=== PATIENT | female | born 1940 | race Caucasian/White ===

== ENCOUNTER 2019-03-14 02:59 | Inpatient (IN) ==
--- NOTE | 2019-03-07 11:02 | EKG Report ---
Test Performed on : 03/07/2019 10:40:01 AM Test Reason : PAT Blood Pressure : / mmHG Vent. Rate : 067 BPM Atrial Rate : 067 BPM P-R Int : 178 ms QRS Dur : 110 ms QT Int : 422 ms P-R-T Axes : 045 012 038 degrees QTc Int : 445 ms Normal sinus rhythm. Incomplete right bundle branch block Nonspecific ST and T wave abnormality Abnormal ECG When compared with ECG of 22-DEC-2017 09:55, Incomplete right bundle branch block is now present Confirmed by Christine SINGER, Vinayak Waters ([id number]) on 03/08/2019 8:25:56 PM
[2019-03-07 11:08] LABS: URINE SOURCE CLEAN CATCH
[2019-03-07 11:13] LABS: BASO# 0.03 X1000 (0.0-0.2); BASO% 0.4 % (0.0-0.8); EOS# 0.19 X1000 (0.0-0.7); EOS% 2.7 % (0.0-10.0); HEMATOCRIT 39.6 % (37.0-47.0); HEMOGLOBIN 12.8 g/dL (12.0-16.0); LYMPH# 1.79 X1000 (1.2-3.4); LYMPH% 25.8 % (20.5-51.1); MCH 28.8 PG (27-31); MCHC 32.3 g/dL (33-37); MONO# 0.66 X1000 (0.11-0.59); MONO% 9.5 % (1.7-9.3); MPV 10.1 FL (7.4-10.4); NEUT# 4.27 X1000 (1.4-6.5); NEUT% 61.6 % (42.2-75.2); PLT 256 X1000 (130-400); RBC 4.45 XMIL (4.2-5.4); RDW 14.6 % (11.5-14.5); WBC 6.94 X1000 (4.8-10.8)
[2019-03-07 11:18] LABS: BILIRUBIN URINE NEGATIVE (NEGATIVE); BLOOD URINE NEGATIVE (NEGATIVE); COLOR YELLOW; GLUCOSE URINE NEGATIVE (NEGATIVE); KETONE URINE NEGATIVE (NEGATIVE); LEUKOCYTES URINE NEGATIVE (NEGATIVE); NITRITE URINE NEGATIVE (NEGATIVE); PROTEIN URINE NEGATIVE (NEGATIVE); SP GRAVITY URINE 1.006; TURBIDITY URINE CLEAR (CLEAR); UROBILINOGEN URINE NORMAL (NORMAL)
[2019-03-07 11:19] LABS: UR EPITHELIAL CELLS <10 /HPF (<10); URINE BACTERIA NEGATIVE /HPF; URINE RBC <10 /HPF (<10); URINE WBC <10 /HPF (<10)
[2019-03-07 11:20] LABS: INR 0.98; PROTIME 13.1 Seconds (11.0-16.0)
[2019-03-07 11:21] LABS: PTT 24.7 Seconds (22.3-41.8)
[2019-03-07 11:28] LABS: AGAP 10; BUN 11 mg/dL (8-22); CHLORIDE 106 mmol/L (98-107); COSMO 289; CREATININE 0.8 mg/dL (0.5-0.9); ESTIMATED GFR > 60; GLUCOSE 110 mg/dL (70-104); POTASSIUM 4.4 mmol/L (3.5-5.1); SODIUM 145 mmol/L (136-145); TCO2 29 mmol/L (25-35)
[2019-03-14] MEDS ORDERED: COLACE ONE (07:51)
[2019-03-14] MEDS ORDERED: REGLAN ONE (07:51)
[2019-03-14] MEDS ORDERED: LYRICA ONE (07:51)
[2019-03-14] MEDS ORDERED: PEPCID ONE (07:51)
[2019-03-14] MEDS ORDERED: LR 1,000 ML ONE (07:52)
[2019-03-14] MEDS ORDERED: CELEBREX ONE (07:52)
[2019-03-14] MEDS ORDERED: KEFZOL 1 GM/D5W 2 GM/100 ML IVPB ONE (07:52)
[2019-03-14] MEDS ORDERED: XYLOCAINE-MPF 2% ONE (08:11)
[2019-03-14] MEDS ORDERED: QUELICIN (DOSE) ONE (08:11)
[2019-03-14] MEDS ORDERED: ZEMURON ONE (08:12)
[2019-03-14] MEDS ORDERED: DIPRIVAN 1% ONE (08:12)
[2019-03-14] MEDS ORDERED: TORADOL ONE (09:47)
[2019-03-14] MEDS ORDERED: SODIUM CHLORIDE 0.9% ONE (09:47)
[2019-03-14] MEDS ORDERED: CYKLOKAPRON 1,000 MG/NS 1,000 MG/100 ML IVPB ONE (09:47)
[2019-03-14] MEDS ORDERED: DURAMORPH ONE (09:47)
[2019-03-14] MEDS ORDERED: MARCAINE 0.25% PF ONE (09:47)
[2019-03-14] MEDS ORDERED: EXPAREL 1.3% ONE (09:47)
[2019-03-14] MEDS ORDERED: FENTANYL ONE (10:25)
[2019-03-14 10:55] LABS: URINE SOURCE CATH
[2019-03-14] MEDS ORDERED: ZOFRAN ONE (11:00)
[2019-03-14] MEDS ORDERED: DECADRON ONE ×2 (11:00→11:13)
[2019-03-14] MEDS ORDERED: OFIRMEV 1000 MG/ISOTONIC SOLN 1,000 MG/100 ML BOTTLE ONE (11:00)
[2019-03-14 11:01] LABS: BILIRUBIN URINE NEGATIVE (NEGATIVE); BLOOD URINE NEGATIVE (NEGATIVE); COLOR YELLOW; GLUCOSE URINE NEGATIVE (NEGATIVE); KETONE URINE NEGATIVE (NEGATIVE); LEUKOCYTES URINE NEGATIVE (NEGATIVE); NITRITE URINE NEGATIVE (NEGATIVE); PH URINE 6.5; PROTEIN URINE NEGATIVE (NEGATIVE); SP GRAVITY URINE 1.006; TURBIDITY URINE CLEAR (CLEAR); UROBILINOGEN URINE NORMAL (NORMAL)
[2019-03-14 11:02] LABS: UR EPITHELIAL CELLS <10 /HPF (<10); URINE BACTERIA NEGATIVE /HPF; URINE RBC <10 /HPF (<10); URINE WBC <10 /HPF (<10)
[2019-03-14] MEDS ORDERED: MORPHINE ONE ×2 (11:57→12:22)
[2019-03-14] MEDS ORDERED: NS 1,000 ML ONE (11:57)
[2019-03-14] MEDS ORDERED: OXY IR ONE (12:19)
--- NOTE | 2019-03-14 12:30 | Diag Imaging Result Doc PS360 ---
SHOULDER 1 VIEW RIGHT - 03/14/2019 INDICATION: right TSA TECHNIQUE: COMPARISON: None FINDINGS: There has been right total shoulder arthroplasty. Alignment is anatomic. No hardware fracture or loosening. IMPRESSION: No complication. Electronically signed by Bari Gonzalez 03/14/2019 12:28 PM
[2019-03-14] MEDS: NS 1,000 ML IV SCH (13:15)
[2019-03-14] MEDS ORDERED: MILK OF MAGNESIA PO PRN (13:15)
[2019-03-14] MEDS ORDERED: MORPHINE IV PRN ×3 (13:15)
[2019-03-14] MEDS ORDERED: OXY IR PO PRN (13:15)
[2019-03-14] MEDS ORDERED: ZOFRAN PO PRN (13:15)
[2019-03-14] MEDS ORDERED: SALINE LOCK IV FLUID XX ONE (15:21)
[2019-03-14] MEDS ORDERED: CYKLOKAPRON 1,000 MG in NS 100 ML IV ONE (17:15)
[2019-03-14] MEDS: KEFZOL 2 GM/D5W 2 GM/50 ML IVPB IV SCH (17:51)
[2019-03-14] MEDS: OXY IR PO PRN (18:02)
[2019-03-14] MEDS: TYLENOL PO SCH ×2 (18:10→20:43)
--- NOTE | 2019-03-14 22:33 | OPERATIVE NOTE ---
PROCEDURE DATE: 03/14/2019 PREOPERATIVE DIAGNOSIS: Right glenohumeral arthritis with partial rotator cuff tear. POSTOPERATIVE DIAGNOSIS: Right glenohumeral arthritis with partial rotator cuff tear. PROCEDURE: Right reverse total shoulder arthroplasty with DePuy Delta Xtend, size 12 press-fit stem, a 38+ 6 humeral cup, a 38+ 2 mm lateralize eccentric Glenosphere, and a standard metaglene. SURGEON: Dr. Hilario Dupree. 1ST DATA MANAGEMENT ASSOCIATE: JELENA Ron, who was necessary for retraction and manipulation of the extremity during the case, and improved efficiency. SECOND ASSISTANTS: JELENA Espinoza, and Rodriguez Uriarte RN. ANESTHESIA: General. INTRAVENOUS FLUIDS: 1400 mL lactated Ringer's. ESTIMATED BLOOD LOSS: 100 mL. COMPLICATIONS: None. INDICATION: The patient is a pleasant 79-year-old female who has a chronic history of pain and discomfort to the right shoulder. She has continued pain and discomfort despite appropriate nonoperative treatment. Given the patient's x-rays and MRI revealed degenerative arthritis as well as an MRI revealed a partial rotator cuff tear. Given patient's continued pain and discomfort, recommendation to proceed with right reverse total shoulder arthroplasty was offered. Risks of benefits of surgery were explained, including the risks of anesthesia, , bleeding, infection, failure to relieve pain, postop stiffness, nerve injury, blood clots, and other imponderables. All questions answered, patient and family wished to proceed with surgery. DETAILS OF OPERATION: The patient was taken to the operating room and placed supine on the operating table. Once adequate anesthesia was obtained, patient was placed in semi-Li beach- chair position. The right shoulder was subsequently prepped and draped in the usual sterile fashion. A standard deltopectoral incision was made with skin knife. Hemostasis was obtained using electrocautery. The medial and lateral skin envelopes were developed. The deltopectoral interval was then developed. Retractors were then placed deep to the pectoralis as well as the conjoined tendon. The deltoid was laterally retracted. A stay suture was placed in the subscapularis tendon and it was released approximately 1 cm medial to its insertion. The shoulder was then dislocated anteriorly. A starting reamer was then passed to the intramedullary canal in standard fashion. The protective disk was then placed. Intramedullary guide with the humeral head cutting block was pinned in to position approximately 15 degrees of retroversion. The humeral head was then resected. A protective disk was then placed. Attention then turned to the glenoid. Circumferential dissection was performed with a deep knife. A guide was placed in to position followed by the guide pin. Reaming was then conducted. The central hole was then dilated. The wound was copiously irrigated with pulsatile lavage. A standard metaglene was then impacted in to position. Two locking screws were then placed as well as 2 nonlocking screws. It had good fixation. After this had been performed, the 38+ 2 mm eccentric Glenosphere was then placed with the eccentricity placed inferiorly. Attention was then turned to the humerus, where an intramedullary guide was placed in to position. The proximal humerus was then reamed. The intramedullary canal was then copiously irrigated. A + 12 Delta extend press-fit stem was then impacted in to position in approximately 15 degrees of retroversion. The trial cup sized and a 38+ 6 humeral cup appeared to correct size. The trial cup was removed. Copious irrigation was performed, once again. The 38+ 6 humeral cup was then impacted. The shoulder reduced, carried through range of motion and had good range of motion and good stability. The wound was copiously irrigated. A #2 FiberWire was then used to repair the subscapularis tendon. Exparel was placed in deep soft tissue, as well as subcutaneous tissue. Irrigation was performed once again. Vicryl 2-0 was then used to repair the subcutaneous tissue, followed by running 2-0 Prolene. Benzoin and Steri-Strips were applied. Adaptic, sterile 4 x 4s, ABD pad, and tape applied to the right shoulder, followed by shoulder immobilizer. All counts were correct. Patient tolerated procedure well, was transferred to recovery room in stable condition. cc: Hilario Dupree MD
[2019-03-14] MEDS: COLACE PO SCH (23:41)
[2019-03-15] MEDS: NS 1,000 ML IV SCH (02:01)
[2019-03-15 02:47] LABS: AGAP 12; BUN 11 mg/dL (8-22); CALCIUM 8.5 mg/dL (8.8-10.2); CHLORIDE 107 mmol/L (98-107); COSMO 284; CREATININE 0.9 mg/dL (0.5-0.9); ESTIMATED GFR > 60; GLUCOSE 156 mg/dL (70-104); SODIUM 141 mmol/L (136-145); TCO2 22 mmol/L (25-35)
[2019-03-15 02:48] LABS: POTASSIUM 6.7 mmol/L (3.5-5.1)
[2019-03-15] MEDS: OXY IR PO PRN (03:14)
[2019-03-15] MEDS: TYLENOL PO SCH ×2 (03:14→08:50)
[2019-03-15] MEDS: KEFZOL 2 GM/D5W 2 GM/50 ML IVPB IV SCH (03:15)
[2019-03-15 04:47] LABS: HEMATOCRIT 35.5 % (37.0-47.0); HEMOGLOBIN 11.2 g/dL (12.0-16.0)
--- NOTE | 2019-03-15 05:17 | EKG Report ---
Test Performed on : 03/15/2019 02:47:43 AM Test Reason : hyperkalemia Blood Pressure : / mmHG Vent. Rate : 088 BPM Atrial Rate : 088 BPM P-R Int : 186 ms QRS Dur : 082 ms QT Int : 372 ms P-R-T Axes : -13 -05 037 degrees QTc Int : 450 ms Normal sinus rhythm. Cannot rule out Anterior infarct , age undetermined Abnormal ECG When compared with ECG of 07-MAR-2019 10:40, Incomplete right bundle branch block is no longer present Minimal criteria for Anterior infarct are now present Confirmed by Brandon Mei MD ([id number]) on 03/16/2019 6:58:48 AM
[2019-03-15 05:18] LABS: CALCIUM 8.2 mg/dL (8.8-10.2); POTASSIUM 5.2 mmol/L (3.5-5.1)
[2019-03-15 07:34] VITALS: BP 121/46
[2019-03-15] MEDS: COLACE PO SCH (08:49)
--- NOTE | 2019-03-15 09:42 | ORTHOPAEDICS PROGRESS NOTE ---
DATE: 03/15/2019 SUBJECTIVE: She is day 1 status post reversed shoulder arthroplasty. She did well overnight and only had to use p.r.n. pain medication twice. States that she rested well. She denies any calf pain at this time and has not had any chest pain or shortness of breath. OBJECTIVE: She has been afebrile through the night with stable vital signs. Her incision is still covered with a dressing but there is no active drainage at this time. She is still wearing her sling and we have not attempted any range of motion exercises. She is neurovascularly intact distally. She has good corrective and manual arts therapist strength on that side. LABORATORY: Hemoglobin and hematocrit of 11 and 35. Creatinine of 1.0. ASSESSMENT: Status post day 1 right reversed total shoulder arthroplasty. PLAN: She will be discharged home today. We will get her started with therapy that will come to her home for 2 weeks and then she will go to outpatient therapy. She did have an episode of when her BMP was checked last night and they had difficulty drawing the blood and her potassium was resulted at 6.7. We redrew this thinking that this was from hemolysis and her repeat draw that resulted at 4 a.m. revealed a potassium of 5.2. An EKG was done that showed normal sinus rhythm. She has remained completely asymptomatic. The 6.7 result was most likely the result of hemolysis. We will change her dressing this morning and she has no drain that needs to be discontinued. Dictated by JELENA Ron for Hilario Dupree MD cc: Hilario Dupree MD
== END 2019-03-15 11:02 | disposition home health service (06) | DRG 483 ==
LOC: SURHOLD 02:59 → 4N 11:05
PROVIDERS: ADMIT Orthopaedic Surgery Adult Reconstructive Orthopaedic Surgery; ATTEND Orthopaedic Surgery Adult Reconstructive Orthopaedic Surgery